=== PATIENT | male | born 1960 | race Caucasian/White ===

== ENCOUNTER → 2019-08-14 13:25 | Outpatient (CLI) | payer OTHER, SELFPAY ==
--- NOTE | 2019-08-14 | DI.RAD.S_ITS ---
PROCEDURE: XR CERVICAL SPINE 2V OR 3V INDICATIONS: CERVICAL PAIN/LEFT SHOULDER PAIN' TECHNIQUE: 4 view(s) of the cervical spine were acquired. COMPARISON: None. FINDINGS: Bones: No fractures or dislocations to the inferior endplate of T1 level. The lateral masses of C1 appear intact on the odontoid view. Straightening of cervical lordosis which may be due to patient positioning and/or concurrent muscle spasms. Moderate multilevel cervical spondylitic changes with disc space narrowing and endplate osteophyte formation. Findings are most pronounced at C5-6 and C7-T1. Bilateral facet arthrosis. No suspicious bony lesions. Soft tissues: No prevertebral soft tissue swelling. IMPRESSION: Moderate multilevel cervical spondylosis most pronounced at C5-6 and C7-T1. Mild straightening of normal cervical lordosis likely related to positioning and/or concurrent muscle spasms. Dictated by: Aubrey Garcia M.D. on 08/14/2019 at 14:25 Approved by: Aubrey Garcia M.D. on 08/14/2019 at 14:27
--- NOTE | 2019-08-14 | DI.RAD.S_ITS ---
PROCEDURE: XR SHOULDER LT MIN 2V INDICATIONS: CERVICAL PAIN/LEFT SHOULDER PAIN' TECHNIQUE: 3 views of the shoulder were acquired. COMPARISON: None. FINDINGS: Bones: No acute fractures or dislocations. There are degenerative changes of the left acromioclavicular and glenohumeral joints. Coracoclavicular and acromioclavicular intervals are maintained. No suspicious bony lesions. Visualized ribs appear intact. Soft tissues: No suspicious soft tissue calcifications. IMPRESSION: 1. Left shoulder without acute osseous abnormalities. 2. Degenerative changes of the left acromioclavicular and glenohumeral joints. Dictated by: Aubrey Garcia M.D. on 08/14/2019 at 14:33 Approved by: Aubrey Garcia M.D. on 08/14/2019 at 14:35
== END ==
PROVIDERS: Family Provider Family Medicine; PCP Family Medicine; Visit Provider Family Medicine
DX: M54.2 Cervicalgia (principal); M25.512 Pain in left shoulder; M47.812 Spondylosis without myelopathy or radiculopathy, cervical region; M47.813 Spondylosis without myelopathy or radiculopathy, cervicothoracic region
CPT/HCPCS: 72040; 73030

== ENCOUNTER → 2025-01-03 12:44 | Outpatient (CLI) | payer MEDICARE, SELFPAY ==
--- NOTE | 2025-01-03 12:48 | DI.RAD.S_ITS ---
PROCEDURE: XR ANKLE LT MIN 3V INDICATIONS: ANKLE PAIN TECHNIQUE: 3 views of the ankle were acquired. COMPARISON: None. FINDINGS: Bones: Mild deformity of the medial and lateral malleolar tips likely indicate old unified fractures. Mild spurring and irregularity anterior tibial plafond noted predisposes to anterior impingement on ankle dorsiflexion. Os trigonum noted-displaced non fusion of the posterior talar process. Tibiotalar and talocalcaneal joints: Minimal ankle and mild talocalcaneal degeneration noted. Soft tissues: There is moderate diffuse soft tissue swelling. IMPRESSION: Moderate diffuse soft swelling likely edema. Other chronic findings as described Dictated by: Puneet Virk M.D. on 01/04/2025 at 12:47 Approved by: Puneet Virk M.D. on 01/04/2025 at 12:49
--- NOTE | 2025-01-03 12:48 | DI.RAD.S_ITS ---
PROCEDURE: XR HIP W PEL IF DONE EMIL MIN 4V INDICATIONS: HIP PAIN TECHNIQUE: AP pelvis with lateral view(s) of both hips). COMPARISON: None. FINDINGS: Bones: There are no osseous abnormalities. SI and hip joints: Severe right and moderate left hip degeneration noted. Both SI joints are normal. Moderate L5-S1 degenerative disc disease is present. Soft tissues: No soft tissue swelling, calcification or mass. IMPRESSION: Severe right and moderate left hip degeneration Dictated by: Puneet Virk M.D. on 01/04/2025 at 12:49 Approved by: Puneet Virk M.D. on 01/04/2025 at 12:50
--- NOTE | 2025-01-03 12:49 | DI.RAD.S_ITS ---
PROCEDURE: XR LUMBAR SPINE 2-3V INDICATIONS: BACK PAIN TECHNIQUE: 3 views of the lumbar spine were acquired. COMPARISON: None. FINDINGS: Lumbar spine curvature and alignment: Normal. Bones: There are no osseous abnormalities. Disc spaces: Severe degenerative disc disease at each lumbar level appreciated. There is also severe degenerative facet disease L3-4 L4-5 and L5-S1. Soft tissues: No soft tissue swelling, calcification or mass. IMPRESSION: Severe multilevel degeneration Dictated by: Puneet Virk M.D. on 01/04/2025 at 12:50 Approved by: Puneet Virk M.D. on 01/04/2025 at 12:51
== END ==
LOC: RAD 12:47
PROVIDERS: Family Provider Family Medicine; PCP Family Medicine; Referring Provider Family Medicine; Visit Provider Family Medicine
DX: M51.370 Other intervertebral disc degeneration, lumbosacral region with discogenic back pain only (principal); M51.360 Other intervertebral disc degeneration, lumbar region with discogenic back pain only; M47.816 Spondylosis without myelopathy or radiculopathy, lumbar region; M16.0 Bilateral primary osteoarthritis of hip; M47.817 Spondylosis without myelopathy or radiculopathy, lumbosacral region; M21.6X2 Other acquired deformities of left foot; G89.29 Other chronic pain; M25.572 Pain in left ankle and joints of left foot
CPT/HCPCS: 72100; 73522; 73610